=== PATIENT | male | born 1970 | race Caucasian/White ===

== ENCOUNTER 2021-11-06 06:58 | Emergency (ER) | payer BC, SELFPAY ==
[2021-11-06 07:24] VITALS: BP 138/96; PULSE 87; RESP 16; TEMP 37.4; O2SAT 99
--- NOTE | 2021-11-06 07:30 | DI.RAD_ITS ---
Exam(s) XR FOOT LT COMPLETE EXAM: XR FOOT LT COMPLETE CLINICAL HISTORY: pain near great toe TECHNIQUE: COMPARISON: No exams were available for comparison FINDINGS: Three views were obtained. There is a mild hallux valgus deformity with secondary mild degenerative changes at the 1st MTP joint. No other bony or soft tissue abnormality seen. IMPRESSION: RADIATION DOSE DELIVERED: Total DLP
--- NOTE | 2021-11-06 08:19 | ED.GENADUL_ITS ---
Discharge Plan Disposition Patient Disposition: HOME Condition: Stable Discharge Details Clinical Impression: Gout Primary Care Provider: Unknown,Unknown ED Provider: Timoteo Ocasio Home Meds and New Rx's Prescriptions: New colchicine 0.6 mg capsule 0.6 mg PO DAILY Qty: 1 0RF indomethacin 25 mg capsule 25 mg PO TID Qty: 20 0RF Rx Instructions: administer with food or milk Continued oxycodone 5 mg Tablet 5 mg PO PRN PRN morphine 15 mg Tablet,Oral Only,Ext.Rel.12 Hr 15 mg PO BID prochlorperazine maleate 10 mg Tablet 10 mg PO Q6H PRN dexamethasone 4 mg Tablet 8 mg PO DAILY Rx Instructions: for 2 days after chemo Discharge Instructions Instructions: Gout (ED) Additional Instructions: Your most likely diagnosis is gout of the great toe. As we discussed definitive diagnosis requires needle aspiration into the joint. A single dose of colchicine and indomethacin was given here in the ER and I have provided you with a prescription of each, please take as directed. As we discussed, please take the lowest dose and shortest course of indomethacin possible to treat your symptoms appropriately. In the meantime rest, elevate, cool and/or warm compresses every 2 hours for 20 minutes. Be sure to have adequate oral hydration. I have placed you on the care management list to help expedite a local primary care provider you may establish care locally Medical Decision Making This is a 51-year-old gentleman, followed at [facility] for his stage IV pancreatic-GI cancer, presenting to the ER for evaluation of left great toe pain that began yesterday. Reports that he has had similar symptoms previously maybe every 6 months or so for the past couple of years but not typically this severe and has never sought medical attention. X-ray has been ordered of his left foot prior to my assuming care of the patient. X-ray unremarkable. Patient is without fever, no evidence of lymphangitic streaking, no evidence of secondary i nfection. He denies rash elsewhere on his body or other joint pain. Denies alcohol use or excessive shellfish consumption. Discussed that most likely diagnosis is that of gout. Low suspicion of septic joint. Discussed that we could obtain laboratory values however either often nondiagnostic and a joint aspiration would be the gold standard. Patient understands at this time would prefer not to pursue laboratory testing and treat for most likely diagnosis which I believe to be perfectly reasonable. We will provide first dose of colchicine and indomethacin here and provide a prescription. We will also set up with our care transition manager so that he may expedite outpatient primary care follow-up. Postop shoe was offered but declined, patient feels that his shoes are currently comfortable. Standard discharge and return precautions were provided. Patient understands, is agreeable to this plan, and has no additional questions or concerns upon discharge. This documentation was generated using [employer] dictation system, please disregard any oddities of phrase or misspellings. Imaging Data Radiologic Study: Attestation: I personally reviewed and interpreted this imaging study as follows: Imaging: X-Ray Radiologist's impression: PROCEDURE INFORMATION: Exam: XR Left Foot Exam date and time: 11/06/2021 7:42 AM Age: 51 years old Clinical indication: Toes and other: Pain near lt great toe; Left TECHNIQUE: Imaging protocol: Radiologic exam of the Left foot. Views: 3 or more views. COMPARISON: No relevant prior studies available. FINDINGS: Bones/joints: There is no evidence of acute fracture. Mild bunion deformity with hallux valgus. No ankle joint effusion. Soft tissues: No significant soft tissue abnormality. IMPRESSION: 1. There is no evidence of acute fracture. 2. Mild bunion deformity with hallux valgus. HPI General Mode of arrival: ambulatory . Date/Time Provider Initiated Documentation: 11/06/21 07:05 . Limitations to Documentation: no limitations . Information obtained by: patient . History of Present Illness 51 year old M presents to the emergency department with the chief complaint of L great toe pain, described as severe, with intensity rated at 9. Quality is described as stabbing and sharp, and is localized to the left and lower extremity. Patient reports no radiation. Patient started experiencing this day(s) (1) and it has been constant. No relieving factors improve symptom(s), Movement worsens symptoms . Patient notes no other symptoms.. Patient did receive the following treatments prior to arrival, none Related Data Home Medications Medication Instructions Recorded Confirmed colchicine 0.6 mg capsule 0.6 mg PO DAILY #1 cap 11/06/21 dexamethasone 4 mg tablet 8 mg PO DAILY 11/06/21 11/06/21 indomethacin 25 mg capsule 25 mg PO TID #20 caps 11/06/21 morphine 15 mg tablet,oral ONLY 15 mg PO BID 11/06/21 11/06/21 (not feeding tubes) oxycodone 5 mg tablet 5 mg PO PRN PRN 11/06/21 11/06/21 prochlorperazine maleate 10 mg 10 mg PO Q6H PRN 11/06/21 11/06/21 tablet Previous Rx's Medication Instructions Recorded colchicine 0.6 mg capsule 0.6 mg PO DAILY #1 cap 11/06/21 indomethacin 25 mg capsule 25 mg PO TID #20 caps 11/06/21 Allergies Allergy/AdvReac Type Severity Reaction Status Date / Time Penicillins Allergy Unverified 11/06/21 07:30 naproxen [From Aleve] AdvReac Unverified 11/06/21 07:30 General Stated Complaint: Orthopedic DAY: 4 Review of Systems Constitutional Constitutional: Denies fever(s) and Denies weakness Musculoskeletal Musculoskeletal: Denies numbness and Denies tingling Integumentary/Breasts Skin/Breast: Reports erythema Neurologic Neurologic: Denies numbness, Denies tingling and Denies weakness PFSH All Active Problems (Updated 11/06/21 @ 08:47 by JULISSA White) Gout (Chronic) Social History Smoking/Tobacco Use Status: Never Smoking risk assessment performed?: Yes Alcohol Intake: current Alcohol Intake frequency: a few times a month Drug use: Never Substance use type: does not use Do you feel safe at home: Yes Do you feel safe in your relationship?: Yes Exam Const General: cooperative, healthy appearing, comfortable and no acute distress Orientation: alert and awake [facility] Head: normal to inspection, normocephalic and atraumatic Eyes Conjunctivae: conjunctivae normal Neck Neck: normal visual inspection, trachea midline and supple Resp Effort & Inspection: normal respiratory effort and able to speak in complete sentences Cardio Rate: regular rate Rhythm: regular rhythm Skin General skin exam: erythema Neuro General: patient alert, patient awake, moves all extremities and no focal motor deficits Cognition: normal cognition Speech: speech normal Gait: antalgic and gait assisted Method: crutches (single crutch) Motor: muscle tone normal throughout Sensory Exam: no sensory deficits noted Extrem General: full ROM, capillary refill normal, no pedal edema and no calf tendernes s Ankle/foot/toe images: 1. Exquisite tenderness of left first MTP joint with mild erythema and warmth. Skin is intact. There is no lymphangitic streaking. Normal capillary refill and dorsalis pedal pulse. Neuro, vascular, tendon intact. Psych Appearance: grossly normal Mental Status: mental status grossly normal Course Vital Signs Vital signs: Vital Signs Temperature 37.4 C 11/06/21 07:24 Pulse 87 11/06/21 07:24 Respiratory Rate 16 11/06/21 07:24 Blood Pressure 138/96 H 11/06/21 07:24 Pulse Oximetry 99 11/06/21 07:24 Temperature 37.4 C 11/06/21 07:24 Temperature Source Tympanic 11/06/21 07:24 Pulse 87 11/06/21 07:24 Respiratory Rate 16 11/06/21 07:24 Blood Pressure 138/96 H 11/06/21 07:24 Blood Pressure Position Supine 11/06/21 07:24 Pulse Oximetry 99 11/06/21 07:24 Oxygen Delivery Method Room Air 11/06/21 07:24 Oxygen Flow Rate 0 11/06/21 07:24 Pain Level 7 11/06/21 07:24
[2021-11-06] MEDS: Indomethacin 25 MG CAP 50 MG PO (08:53)
[2021-11-06] MEDS: Colchicine 0.6 MG TAB 1.2 MG PO (08:53)
--- NOTE | 2021-11-06 08:55 | NUR.NOTE ---
Nursing Note: Referral given to Care management for needs PCP, establish care; routine follow up.
--- NOTE | 2021-11-06 09:41 | DI.VRAD_ITS ---
PROCEDURE INFORMATION: Exam: XR Left Foot Exam date and time: 11/06/2021 7:42 AM Age: 51 years old Clinical indication: Toes and other: Pain near lt great toe; Left TECHNIQUE: Imaging protocol: Radiologic exam of the Left foot. Views: 3 or more views. COMPARISON: No relevant prior studies available. FINDINGS: Bones/joints: There is no evidence of acute fracture. Mild bunion deformity with hallux valgus. No ankle joint effusion. Soft tissues: No significant soft tissue abnormality. IMPRESSION: 1. There is no evidence of acute fracture. 2. Mild bunion deformity with hallux valgus. Dictated and Authenticated by: Allen Gutierrez MD. Ordering:SIVA Avila MD
== END 2021-11-06 09:01 | disposition home or self-care (01) ==
PROVIDERS: Emergency Provider Physician Assistant
DX: M10.9 Gout, unspecified (principal)
CPT/HCPCS: 99283; 73630; 99284